=== PATIENT | male | born 1935 | race Caucasian/White ===

== ENCOUNTER → 2017-08-20 | Outpatient (CLI) | payer OTHER ==
[~2017-08-20] MED LIST: ASPIR-TRIN325 MG PO; BETAPACE80 MG PO; CAPTOPRIL100 MG PO; DILTIAZEM CD300 MG PO; KCL PO; POTASSIUM CHLO20 ME3 PO; SIMVASTATIN10 MG PO; SOTALOL HCL AF80 MG PO; SOTALOL80 MG PO; TRIAMTERENE AND1 TAB PO; VALSARTAN160 MG PO; [UNRECOGNIZED DRUG - OTHER] PO
== END | disposition home or self-care (01) ==
LOC: CANPRECLI → EDBD → RESCLI 02:39
DX: I48.2 Chronic atrial fibrillation (principal); I10 Essential (primary) hypertension; E78.5 Hyperlipidemia, unspecified; I25.10 Atherosclerotic heart disease of native coronary artery without angina pectoris

== ENCOUNTER 2017-09-18 13:45 | Inpatient (IN) | payer OTHER ==
[~2017-09-18] VITALS: Ht 182.9 cm; Wt 109.0 kg
[2017-09-18] VITALS (18 sets, daily range): BP systolic 107–156; BP diastolic 57–94
--- NOTE | ~2017-09-18 | CON ---
[place], [place] REPORT OF CONSULTATION NAME: GUERRERO ARCINIEGA UNIT #: [id number] ROOM: [facility] DOCTOR: MANAV MANZO MD BIRTHDATE: [birth year] DOS: 09/19/2017 HISTORY OF PRESENT ILLNESS: This is an 82-year-old -Thai male with a history of atrial fibrillation that goes back 15 years or so, I am not sure if this is chronic atrial fibrillation or paroxysmal. He has been on antiarrhythmic medication. He had a pacemaker implanted some 15 years ago and generators have been changed [address] Ferreira note from 2009 mentioned sick sinus syndrome as a diagnosis. He also has essential hypertension, hyperlipidemia, and chronic kidney disease. 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 He had the bilateral knee replacement and does have coronary artery disease with [address] Fererira. He does not use alcoholic beverages and does not smoke. He had gone to his physician for followup visit and was found to have a heart rate of 152 and was sent to the Emergency Department and was admitted. He had little bit of palpitations, but he had no dizziness, weakness, shortness of breath, lightheadedness, did not pass out. There was no sweating, nausea or vomiting. He had not had any exertional shortness of breath more than usual. No swelling of the lower extremities. He was started on a Cardizem drip in the Emergency Department and heart rate had slowed down nicely. HOME MEDICATIONS: Include brimonidine, clopidogrel, diltiazem XT 1300 daily, furosemide 40 daily, eye drops, potassium chloride 20 mEq daily, Xarelto 10 mg at bedtime (he had hematuria with higher dose), simvastatin 10 at bedtime, sotalol 80 mg daily, Timolol eyedrops as well, triamterene/hydrochlorothiazide and valsartan 160 daily. PHYSICAL EXAMINATION: GENERAL: The patient is very pleasant, alert, oriented. He is comfortable. He is not tachypneic. Temperature is normal. There is no thyromegaly or finger clubbing. VITAL SIGNS: Pulse is 60 and regular, blood pressure 160/70. NECK: Normal JVP. AJR is negative. There is no carotid bruit. HEART: There is no cardiomegaly. No murmurs are present. Pedal pulses are appreciated. EXTREMITIES: There is no edema at all in the lower extremities. RESPIRATORY: Breath sounds are fairly decent. He has a few crackles in the left lower zone. ABDOMEN: Supple, nontender. DIAGNOSTIC STUDIES: The first ECG demonstrated a regular heart rate at 151 beats per minute and no ST-T wave changes. This either is supraventricular complex or it is atrial flutter with 2:1 AV conduction. Once heart rate was slowed down, he began to pace in the ventricle with no atrial ectopy, probably atrial fibrillation with ventricular paced. At this time, the heart rate is in the 70s and monitor shows occasional pacing beat. Magnesium was 2.3. Potassium was normal. Chest x-ray was reviewed and did not [place], [place] REPORT OF CONSULTATION NAME: GUERRERO ARCINIEGA UNIT #: [id number] ROOM: [facility] DOCTOR: MANAV MANZO MD BIRTHDATE: [birth year] show any obvious pulmonary edema. BUN is 26, creatinine 1.62. IMPRESSION: This patient has atrial fibrillation, whether this is persistent or new is not clear. The patient does not have any obvious symptoms such as palpitations. Magnesium and potassium are both fine. Currently, heart rate has slowed down nicely with the IV diltiazem. The paced rhythm ECG showed prolonged QT interval at 538 milliseconds that is because of his QRS is also about 130 milliseconds on pacing, so this is not true prolonged QT interval. RECOMMENDATIONS: Beta yanni should be added to diltiazem p.o. and IV Cardizem can be discontinued. I would still be in favor of sotalol 80 mg b.i.d. and QT interval should be monitored when the patient is not pacing. An echocardiogram has been done, which Dr. Ferreira will read. I thank you on behalf of Dr. Ferreira for this consult. MANAV MANZO MD CM:CONSTR:REPORT OF CONSULTATION 1101 09/19/17 1216 interface SUZANNE FERREIRA MD
[2017-09-18 14:46] LABS: BASO % 0.5 % (0.0-1.0); EOS # 0.3 10*3/uL (0.0-0.4); EOS % 4.3 % (1.0-4.0); HEMATOCRIT 42.1 % (42.0-52.0); LYMPH # 1.5 10*3/uL (1.3-4.4); MEAN CELL VOLUME 87.7 fl (80.0-94.0); MEAN CORPUSCULAR HGB 29.2 pg (27.0-31.0); MEAN CORPUSCULAR HGB CONC 33.3 g/dl (33.0-37.0); MEAN PLATELET VOLUME 10.5 fl (9.6-12.3); MONO # 0.6 10*3/uL (0.1-1.0); MONO % 9.1 % (3.0-9.0); NEUT # 4.2 10*3/uL (2.3-7.9); NEUT % 63.8 % (47.0-73.0); PLATELET COUNT AUTOMATED 204 10*3/uL (130-400); RED CELL DISTRI WIDTH 14.4 % (0-14.5); WHITE BLOOD COUNT 6.6 10*3/uL (4.8-10.8)
[2017-09-18 15:06] LABS: ALBUMIN 3.5 gm/dl (3.1-4.5); CREATININE 1.74 mg/dL (0.70-1.30); TOTAL PROTEIN 7.1 gm/dL (6.4-8.2)
[2017-09-18] MEDS ORDERED: CLOPIDOGREL75 MG PO (17:23)
[2017-09-18] MEDS ORDERED: XARELTO10 MG PO (17:24)
[2017-09-18] MEDS ORDERED: CARTIA XT300 MG PO (17:28)
[2017-09-18] MEDS ORDERED: LASIX40 MG PO (17:29)
[2017-09-18] MEDS ORDERED: LATANOPROST2.5 ML OD (17:34)
[2017-09-18] MEDS ORDERED: BRIMONIDINE TART5 ML OD (17:35)
[2017-09-18] MEDS ORDERED: TIMOLOL MALEATE10 M1 OD (17:35)
[2017-09-18] MEDS ORDERED: DORZOLAMIDE HYD10 M1 OD (17:43)
[2017-09-18] MEDS ORDERED: DIOVAN160 M2 PO (17:44)
[2017-09-18] MEDS ORDERED: SYSTANE ULTRA 010 M1 OS (17:50)
[2017-09-19] VITALS: BP 129/78
[2017-09-19 04:00] VITALS: BP 128/75
[2017-09-19 06:13] LABS: BASO % 0.5 % (0.0-1.0); EOS # 0.4 10*3/uL (0.0-0.4); EOS % 5.7 % (1.0-4.0); HEMATOCRIT 41.3 % (42.0-52.0); HEMOGLOBIN 13.5 g/dl (14.0-18.0); LYMPH # 1.4 10*3/uL (1.3-4.4); LYMPH % 21.5 % (27.0-41.0); MEAN CELL VOLUME 87.7 fl (80.0-94.0); MEAN CORPUSCULAR HGB 28.7 pg (27.0-31.0); MEAN CORPUSCULAR HGB CONC 32.7 g/dl (33.0-37.0); MEAN PLATELET VOLUME 10.7 fl (9.6-12.3); MONO # 0.7 10*3/uL (0.1-1.0); PLATELET COUNT AUTOMATED 183 10*3/uL (130-400); RED BLOOD COUNT 4.71 10*6/uL (4.50-5.90); RED CELL DISTRI WIDTH 14.5 % (0-14.5); WHITE BLOOD COUNT 6.5 10*3/uL (4.8-10.8)
[2017-09-19 06:25] LABS: CREATININE 1.62 mg/dL (0.70-1.30); PHOSPHOROUS 3.1 mg/dL (2.5-4.9); POTASSIUM 3.7 mmol/L (3.5-5.1)
[2017-09-19 06:32] LABS: ACT PARTIAL THROMBO TIME 28.8 SECONDS (20.8-31.5); INTERNATIONAL NORM RATIO 1.1 (2.0-3.5)
[2017-09-19 06:33] LABS: THYROID STIM HORMONE (HS) 4.12 uIU/ml (0.358-4.75)
[2017-09-19 07:24] LABS: VITAMIN D, 25-HYDROXY 35.7 ng/mL (30-100)
[2017-09-19 08:00] VITALS: BP 116/70
[2017-09-19 12:00] VITALS: BP 117/74
[2017-09-19 16:00] VITALS: BP 137/62
[2017-09-19 20:00] VITALS: BP 155/80
[2017-09-20] VITALS: BP 138/86
[2017-09-20 07:28] VITALS: BP 110/70; BP 130/70
[2017-09-20 07:36] LABS: CREATININE 1.71 mg/dL (0.70-1.30); POTASSIUM 3.5 mmol/L (3.5-5.1)
[2017-09-20] MEDS ORDERED: METOPROLOL TART50 M1 PO (11:05)
== END 2017-09-20 12:27 | disposition home or self-care (01) | DRG 280 ==
LOC: EDSTATUS 13:45 → ED 13:46 → RESCLI 13:49 → EDHOLD 16:29 → ICCU 16:29 → 4E 16:29 → ICCU 16:53 → 4E 09-19 16:34
PROVIDERS: Emergency Medicine; Internal Medicine; Student in an Organized Health Care Education/Training Program
DX: I21.A1 Myocardial infarction type 2 (principal); N17.0 Acute kidney failure with tubular necrosis; R65.11 Systemic inflammatory response syndrome (SIRS) of non-infectious origin with acute organ dysfunction; D68.59 Other primary thrombophilia; I49.5 Sick sinus syndrome; E44.1 Mild protein-calorie malnutrition; I48.2 Chronic atrial fibrillation; D72.810 Lymphocytopenia; R73.9 Hyperglycemia, unspecified; I10 Essential (primary) hypertension; E78.5 Hyperlipidemia, unspecified; D64.9 Anemia, unspecified; Z96.653 Presence of artificial knee joint, bilateral; I25.10 Atherosclerotic heart disease of native coronary artery without angina pectoris; Z95.0 Presence of cardiac pacemaker; Z79.899 Other long term (current) drug therapy; Z79.01 Long term (current) use of anticoagulants; Z88.6 Allergy status to analgesic agent; Z88.8 Allergy status to other drugs, medicaments and biological substances; Z79.82 Long term (current) use of aspirin; Z86.73 Personal history of transient ischemic attack (TIA), and cerebral infarction without residual deficits; Z87.891 Personal history of nicotine dependence; Z82.49 Family history of ischemic heart disease and other diseases of the circulatory system; Z80.6 Family history of leukemia; Z83.3 Family history of diabetes mellitus; Z95.5 Presence of coronary angioplasty implant and graft; Z68.32 Body mass index [BMI] 32.0-32.9, adult

== ENCOUNTER 2017-12-27 09:40 | Inpatient (IN) | payer OTHER ==
[~2017-12-27] VITALS: Ht 182.8 cm; Wt 109.8 kg
[2017-12-27] VITALS (7 sets, daily range): BP systolic 141–178; BP diastolic 86–122
--- NOTE | ~2017-12-27 | CON ---
[place], [place] REPORT OF CONSULTATION [id number] UN[facility] #: [id number] ROOM: 515 DOCTOR: MANAV MANZO MD BIRTHDATE: [birth year] DOS: 12/27/2017 HISTORY OF PRESENT ILLNESS: This is an 82-year-old -[place] man with a history of chronic atrial fibrillation and also coronary artery disease. He had a coronary stent deployed some years ago. He also has essential hypertension and had a pacemaker implanted for sick sinus syndrome in the remote past. He has hyperlipidemia and chronic kidney disease and had a CVA in the remote past bilateral knee replacement. He does not smoke nor does he drink alcoholic beverages. He was admitted to this hospital in September with atrial flutter with rapid ventricular rate. He then became short of breath this morning and at that time, had some chest heaviness which lasted for quite some time. Nitroglycerin did not help. He was given IV furosemide in the Emergency Department to treat his breathing and chest heaviness and he is up as well. He did not have any orthopnea in the past, but increasing shortness of breath over the last few days. I gather he has not been taking furosemide which was prescribed for him. He has had swelling in the legs that appeared in the last many days and no dizziness or loss of consciousness. HOME MEDICATIONS: Include latanoprost eye drops, clopidogrel 75 daily, diltiazem 300 mg daily, furosemide 40 mg daily which he had not been taking, meclizine, Xarelto 10 mg daily, simvastatin 10 daily, sotalol 80 mg b.i.d. and triamterene and hydrochlorothiazide and valsartan 160 daily. PHYSICAL EXAMINATION: GENERAL: This revealed the patient is a very large gravid big bones. He is alert, oriented. He is not tachypneic, but has oxygen on. Temperature is normal. VITAL SIGNS: Pulse is irregular at 88 beats per minute, blood pressure 168/109. NECK: JVP is normal. AJR is negative. No bruit in the neck. CARDIAC: Auscultation did not reveal any murmurs. He has 2+ edema in the lower extremities. RESPIRATORY: Percussion note is normal. Auscultation reveals mild reduced breath sounds with some crackles in the lower zones. DIAGNOSTIC STUDIES: Chest x-ray demonstrated mild pulmonary edema and an ECG showed atrial fibrillation with ventricular rate of 127 beats per minute with minimal ST segment depression in many chest leads. LABORATORY DATA: BUN , creatinine 1.39, potassium 3.7. Troponin I level is normal. Hemoglobin 12.3 g/dL. IMPRESSION: 1. The patient has acute on chronic systolic heart failure and rapid ventricular rate is probably responsible to this to some extent along with noncompliance with the furosemide. This lorenzo has diuresed very well with intravenous furosemide which should be continued. 2. Coronary artery disease. Chest heaviness is present, but nitroglycerin did [place], [place] REPORT OF CONSULTATION NAME: GUERRERO ARCINIEGA UNIT #: [id number] ROOM: [facility] DOCTOR: MANAV MANZO MD BIRTHDATE: [birth year] not relieve it and once he diuresed, he is feeling eased up, which suggests pulmonary congestion may be responsible for his symptom. 3. Chronic kidney disease. RECOMMENDATIONS: Beta-yanni needs to be added; therefore, carvedilol 6.25 mg b.i.d. is being added to slow down the heart rate and help with the blood pressure. This dose should be increased as necessary. I believe he has an appointment with Dr. Ferreira in the next week or two which he should keep. I do not recommend any stress test at this time. I thank you on behalf of Dr. Ferreira for this consult. MANAV MANZO MD CM:CONSTR:REPORT OF CONSULTATION 1800 12/27/17 2555 interface
--- NOTE | ~2017-12-27 | PR ---
[place], [place] PROGRESS NOTE NAME: GUERRERO ARCINIEGA UNIT #: [id number] ROOM: 515 DOCTOR: MANAV MANZO MD BIRTHDATE: [birth year] DOS: 12/28/2017 SUBJECTIVE: He has less shortness of breath. He urinated quite a lot following IV furosemide. He has had no chest pain or palpitation. Some cough without any expectoration. Appetite is reasonable. OBJECTIVE: GENERAL: This is a patient who is alert, oriented. He has oxygen on and is not tachypneic. VITAL SIGNS: Pulse is 64, blood pressure 150/78. NECK: JVP does not seem to be elevated. LUNGS: Clear. EXTREMITIES: Edema in the lower extremities is at least 2+, more so on the right side. LABORATORY DATA: Creatinine is 1.35, down from yesterday, BUN is 18, potassium is 3.1. IMPRESSION: The patient's acute on chronic systolic heart failure is improving, diureses has caused hypokalemia. RECOMMENDATIONS: 1. Supplement potassium for hypokalemia. 2. Current dose of IV furosemide should be continued for another couple of days. MNAAV MANZO MD CM:PNTRANS [id number] MANAV MANZO MD 12/28/17 1532 interface
[~2017-12-27 09:40] MED LIST changes: +BRIMONIDINE TART5 ML OD; +CARTIA XT300 MG PO; +CLOPIDOGREL75 MG PO; +DIOVAN160 M2 PO; +DORZOLAMIDE HYD10 M1 OD; +LASIX40 MG PO; +LATANOPROST2.5 ML OD; +METOPROLOL TART50 M1 PO; +SYSTANE ULTRA 010 M1 OS; +TIMOLOL MALEATE10 M1 OD; +XARELTO10 MG PO
[2017-12-27] MEDS ORDERED: XARELTO10 MG PO (09:44)
[2017-12-27] MEDS ORDERED: SOTALOL80 MG PO (09:45)
[2017-12-27] MEDS ORDERED: MECLIZINE HCL12.5 MG PO (09:48)
[2017-12-27] MEDS ORDERED: NITROSTAT0.4 MG SL (09:50)
[2017-12-27] MEDS ORDERED: CHOLEST CARE500 MG PO (09:52)
[2017-12-27 09:59] LABS: BASO % 0.6 % (0.0-1.0); EOS # 0.3 10*3/uL (0.0-0.4); EOS % 3.6 % (1.0-4.0); HEMATOCRIT 37.9 % (42.0-52.0); HEMOGLOBIN 12.3 g/dl (14.0-18.0); LYMPH # 0.6 10*3/uL (1.3-4.4); LYMPH % 8.7 % (27.0-41.0); MEAN CELL VOLUME 89.6 fl (80.0-94.0); MEAN CORPUSCULAR HGB 29.1 pg (27.0-31.0); MEAN CORPUSCULAR HGB CONC 32.5 g/dl (33.0-37.0); MEAN PLATELET VOLUME 10.4 fl (9.6-12.3); MONO # 0.5 10*3/uL (0.1-1.0); MONO % 7.7 % (3.0-9.0); NEUT # 5.5 10*3/uL (2.3-7.9); NEUT % 79.3 % (47.0-73.0); PLATELET COUNT AUTOMATED 198 10*3/uL (130-400); RED BLOOD COUNT 4.23 10*6/uL (4.50-5.90); RED CELL DISTRI WIDTH 15.4 % (0-14.5)
[2017-12-27 10:10] LABS: ACT PARTIAL THROMBO TIME 25.3 SECONDS (20.8-31.5)
[2017-12-27 10:17] LABS: ALKALINE PHOSPHATASE 72 U/L (45-117); BUN 16 mg/dl (7-24); CHLORIDE 106 mmol/L (98-107); POTASSIUM 3.7 mmol/L (3.5-5.1); SGOT/AST 12 IU/L (3-35); SGPT/ALT 12 U/L (12-78); SODIUM 141 mmol/L (136-145); TOTAL PROTEIN 6.4 gm/dL (6.4-8.2)
[2017-12-27 10:25] LABS: TROPONIN I < 0.015 ng/ml (<0.045)
[2017-12-27 10:26] LABS: CREATININE 1.39 mg/dL (0.70-1.30)
[2017-12-27] MEDS ORDERED: TRIAMTERENE-HC1 EACH PO (12:36)
[2017-12-27] MEDS ORDERED: DIOVAN160 M2 PO (12:37)
[2017-12-28] VITALS: BP 148/80
[2017-12-28 06:41] LABS: BASO % 0.3 % (0.0-1.0); EOS # 0.3 10*3/uL (0.0-0.4); EOS % 5.2 % (1.0-4.0); HEMATOCRIT 36.4 % (42.0-52.0); HEMOGLOBIN 11.8 g/dl (14.0-18.0); LYMPH # 1.1 10*3/uL (1.3-4.4); LYMPH % 18.6 % (27.0-41.0); MEAN CELL VOLUME 89.2 fl (80.0-94.0); MEAN CORPUSCULAR HGB 28.9 pg (27.0-31.0); MEAN CORPUSCULAR HGB CONC 32.4 g/dl (33.0-37.0); MEAN PLATELET VOLUME 10.9 fl (9.6-12.3); MONO # 0.7 10*3/uL (0.1-1.0); MONO % 11.4 % (3.0-9.0); NEUT # 3.7 10*3/uL (2.3-7.9); NEUT % 64.2 % (47.0-73.0); PLATELET COUNT AUTOMATED 187 10*3/uL (130-400); RED BLOOD COUNT 4.08 10*6/uL (4.50-5.90); RED CELL DISTRI WIDTH 15.3 % (0-14.5); WHITE BLOOD COUNT 5.8 10*3/uL (4.8-10.8)
[2017-12-28 07:09] LABS: BUN 18 mg/dl (7-24); CHLORIDE 102 mmol/L (98-107); CHOLESTEROL 119 mg/dL (<200); CREATININE 1.35 mg/dL (0.70-1.30); HDL CHOLESTEROL 39 mg/dl (40-60); LDL CHOLESTEROL 61 mg/dL (9-159); PHOSPHOROUS 3.6 mg/dL (2.5-4.9); POTASSIUM 3.1 mmol/L (3.5-5.1); SODIUM 141 mmol/L (136-145); TRIGLYCERIDES 94 mg/dl (<150); VLDL CHOLESTEROL 19 mg/dL (6-40)
[2017-12-28 08:00] VITALS: BP 150/78
[2017-12-28 12:00] VITALS: BP 134/79
[2017-12-28 16:00] VITALS: BP 120/68
[2017-12-28 20:00] VITALS: BP 170/92
[2017-12-29] VITALS: BP 127/72
[2017-12-29 08:00] VITALS: BP 140/95
[2017-12-29 08:23] LABS: CREATININE 1.51 mg/dL (0.70-1.30); POTASSIUM 3.1 mmol/L (3.5-5.1)
[2017-12-29 08:33] LABS: FREE T4 1.07 ng/dl (0.76-1.46)
[2017-12-29] MEDS ORDERED: CARVEDILOL6.25 MG PO (11:05)
[2017-12-29] MEDS ORDERED: NITROSTAT0.4 MG SL (11:28)
== END 2017-12-29 11:55 | disposition home health service (06) | DRG 291 ==
LOC: ED 09:40 → 5E 10:22 → EDHOLD 10:22 → 5E 10:36
PROVIDERS: Emergency Medicine; Student in an Organized Health Care Education/Training Program
PROC: 4B02XSZ Measurement of Cardiac Pacemaker, External Approach (ICD-10-PCS; principal; 2017-12-28)
DX: I13.0 Hypertensive heart and chronic kidney disease with heart failure and stage 1 through stage 4 chronic kidney disease, or unspecified chronic kidney disease (principal); I50.43 Acute on chronic combined systolic (congestive) and diastolic (congestive) heart failure; D68.59 Other primary thrombophilia; I49.5 Sick sinus syndrome; E44.1 Mild protein-calorie malnutrition; E83.41 Hypermagnesemia; N18.3 Chronic kidney disease, stage 3 (moderate); I48.2 Chronic atrial fibrillation; J44.9 Chronic obstructive pulmonary disease, unspecified; D64.9 Anemia, unspecified; Z96.653 Presence of artificial knee joint, bilateral; Z66 Do not resuscitate; Z51.5 Encounter for palliative care; E87.6 Hypokalemia; I25.10 Atherosclerotic heart disease of native coronary artery without angina pectoris; R73.9 Hyperglycemia, unspecified; E78.5 Hyperlipidemia, unspecified; Z68.32 Body mass index [BMI] 32.0-32.9, adult; Z79.01 Long term (current) use of anticoagulants; Z79.899 Other long term (current) drug therapy; Z86.73 Personal history of transient ischemic attack (TIA), and cerebral infarction without residual deficits; I25.2 Old myocardial infarction; Z95.0 Presence of cardiac pacemaker; Z95.818 Presence of other cardiac implants and grafts; Z87.891 Personal history of nicotine dependence; Z80.6 Family history of leukemia; Z82.49 Family history of ischemic heart disease and other diseases of the circulatory system; Z83.3 Family history of diabetes mellitus

== ENCOUNTER 2018-05-10 11:46 | Inpatient (IN) | payer OTHER ==
[2018-05-10] VITALS (8 sets, daily range): BP systolic 149–178; BP diastolic 62–115
[~2018-05-10] VITALS: Ht 182.9 cm; Wt 98.2 kg
--- NOTE | ~2018-05-10 | DS ---
[place], [place] DISCHARGE SUMMARY NAME: UGERRERO ARCINIEGA UNIT #: [id number] ROOM: 401 DOCTOR: LORY MCDONOUGH MD BIRTHDATE: [birth year] DOS: DIAGNOSES: 1. Acute systolic congestive heart failure. 2. Peripheral volume overload. 3. Coronary artery disease with history of stent placement. 4. Chronic atrial fibrillation. 5. History of pacemaker placement for sick sinus. 6. Bilateral knee replacement. 7. Mixed hyperlipidemia. 8. Primary osteoarthritis, bilateral knee joints. 9. Mild depression, single episode. 10. Hypokalemia. HOSPITAL COURSE: The patient is not known to me, 82 years old, comes in with complaints of difficulty breathing, increased leg edema. The patient was quite swollen and peripheral volume overload was noted bilaterally. The patient was placed on IV diuretics. Reviewed the echocardiogram that was done in 09/2017, showed that his ejection fraction was only 40-45%. Dr. Ferreira was consulted. The patient has not been seen by Dr. Ferreira this admission. Medication adjustments were made. Pressures are slightly on the high side, possibly from meds being readjusted. Chest x-ray continues to show COPD, does not show any evidence of CHF. Lactic acid was high, it has normalized. Potassium supplementation was given for hypokalemia. Today's labs are pending. The patient was quite depressed after his , feels that he is quite lonely and he is emotional, so it was added. The patient was started on a low dose of Lexapro. The patient is stable and improving. The plan is to discharge him to home today to be followed up as an outpatient by his PCP. Visiting nurses also have been consulted. [place], [place] DISCHARGE SUMMARY NAME: GUERRERO ARCINIEGA UNIT #: [id number] ROOM: 401 DOCTOR: LORY MCDONOUGH MD BIRTHDATE: [birth year] LORY MCDONOUGH MD CM:DISCHARG 0817 [id number] LORY MCDONOUGH MD 05/28/18 1026 interface
--- NOTE | ~2018-05-10 | PR ---
[place], [place] PROGRESS NOTE NAME: [facility]IEGA [id number] UNIT #: [id number] ROOM: 401 DOCTOR: LORY MCDONOUGH MD BIRTHDATE: [birth year] DOS: SUBJECTIVE: The patient is doing fine without any complaints today. OBJECTIVE: VITAL SIGNS: Blood pressure at midnight 118/88, pulse of 80, respirations 20, temperature 97.9. LUNGS: Diminished breath sounds, clear. HEART: Irregular. ABDOMEN: Obese, soft. EXTREMITIES: Without any edema. LABORATORY DATA: Lab this morning shows a potassium which is low. ASSESSMENT AND PLAN: 1. Hypokalemia. Supplementation is ordered. 2. Acute systolic congestive heart failure. The patient will have a repeat echocardiogram on Sunday, unfortunately the long weekend and we are unable to do an echocardiogram. 3. Primary osteoarthritis, localized. Medications were given. 4. Because of left ventricular dysfunction, changes in antihypertensives will need to be made. LORY MCDONOUGH MD CM:PNTRANS [id number] [id number] LORY MCDONOUGH MD 05/12/18 2146 interface
--- NOTE | ~2018-05-10 | PR ---
[place], [place] PROGRESS NOTE NAME: [facility] ARCINIEGA [id number] UNIT #: [id number] ROOM: 401 DOCTOR: LORY MCDONOUGH MD BIRTHDATE: [birth year] DOS: SUBJECTIVE: The patient is doing fine without any complaints this morning, had a good night. OBJECTIVE: VITAL SIGNS: Blood pressure is 155/88, pulse of 88, respirations 20, temperature 98.5. LUNGS: Clear. HEART: Regular. ABDOMEN: Obese, soft. EXTREMITIES: Without any edema. ASSESSMENT AND PLAN: 1. The patient admitted with shortness of breath with systolic congestive heart failure, improved. 2. Left ventricular dysfunction, ejection fraction about 40%. The patient's medications have been changed, added beta yanni and RACHEL inhibitors. 3. History of cigarette smoking many years ago. Chest x-ray showing chronic obstructive pulmonary disease. 4. Hypokalemia. Supplementation was given. Repeat labs will be ordered today. LORY MCDONOUGH MD CM:PNTRANS 0811 [id number] LORY MCDONOUGH MD 05/13/18 1145 interface
--- NOTE | ~2018-05-10 | EKG ---
[place], [place] ELECTROCARDIOGRAM REPORT NAME: GUERRERO ARCINIEGA UNIT #: [id number] ROOM: 401 DOCTOR: FARRUKH DRAFT REPORT BIRTHDATE: [birth year] [facility] Test Date: 2018-05-10 Test Time: 11:52:02 Pat Name: GUERRERO ARCINIEGA Department: Room: 401 Gender: M Adult Secondary Education Instructor: : 1935 Requested By: GUCCI PERLA Order Number: [id number] Reading MD: Garth Butler MD Measurements Intervals [place] Rate: 119 P: UT: QRS: 18 QRSD: 86 T: 13 QT: 352 QTc: 496 Interpretive Statements Atrial fibrillation,RVR Probable anteroseptal infarct, old Borderline repolarization abnormality Electronically Signed On 05-15-2018 19:51:52 PDT by Garth Butler MD CM:EKGRPT:ELECTROCARDIOGRAM REPORT 1152 50 GUCCI SALOMON DRAFT REPORT GUCCI PERLA DO
--- NOTE | ~2018-05-10 | WRIGHTHP ---
[place], [place] PATIENT HISTORY AND PHYSICAL EXAM NAME: GUERRERO ARCINIEGA [facility] #: [id number] UNIT #: [id number] ROOM: 401 DOCTOR: LORY MCDONOUGH MD BIRTHDATE: [birth year] DOS: 05/10/2018 HISTORY OF PRESENT ILLNESS: The patient is an 82 years old, not known to me. The patient presents with complaints of increasing shortness of breath for a few days' duration with increasing leg edema; usually sees a physician in [facility], but that person has retired and he has not seen anybody for a few weeks. He was last hospitalized in 12/2017 with complaints of chest pain. The patient denies having any chest pains, palpitations or shortness of breath. States that he is lonely, had a fall a few months ago down the cellar steps and since then, his left leg has been swollen. Both of his legs are now swollen and he has been short of breath, so he decided to come into the Emergency Room. PAST MEDICAL HISTORY: Significant for: 1. Coronary artery disease with history of stent placement about 2 years ago. 2. Chronic atrial fibrillation. 3. History of pacemaker placement for sick sinus. 4. Mixed hyperlipidemia. 5. Bilateral knee replacement. MEDICATIONS: That he is currently on are Cardizem 300, Xarelto 10 mg daily, Plavix 75 daily, prednisone eye drops to the eye, furosemide 40 daily, meclizine 12.5 q.6 hours p.r.n., Klor-Con 20 daily, simvastatin 10 daily, sotalol 80 b.i.d., tramadol 50 b.i.d. SOCIAL HISTORY: Nonsmoker, does not use any alcohol. Lives at home alone. His a little more than a year ago. He has 3 grown son. OBJECTIVE: VITAL SIGNS: Blood pressure is 152/76, pulse of 110, irregular, respirations 18, temperature 98.3. LUNGS: Diminished breath sounds. No wheezes, rales or rhonchi heard this morning. HEART: Irregular. ABDOMEN: Obese, soft, nontender. EXTREMITIES: Bilateral pitting edema about 2+. Chest x-ray did not show any pneumonia or any effusion or CHF. LABORATORY DATA: Comprehensive glucose 176, BUN 17, creatinine 1.45, sodium 141, potassium 3.5, chloride 104, bicarbonate 30. C-reactive protein 0.57. WBC count is 5.3, hemoglobin 13.2, hematocrit 41.0, platelets 196. Chest x-ray, no acute lung disease. Lactic acid 1.4. ASSESSMENT AND PLAN: 1. The patient presents with acute systolic congestive heart failure. Last echocardiogram that we have in the hospital is 09/2017, which shows an ejection fraction of 40-45% with a concentric left ventricular hypertrophy. The patient needs to be placed on beta blockers and RACHEL inhibitors and a low dose of Aldactone, which we have done. I will discontinue the Cardizem right now, readjust beta blockers. [place], [place] PATIENT HISTORY AND PHYSICAL EXAM NAME: GUERRERO ARCINIEGA UNIT #: [id number] ROOM: [facility] DOCTOR: LORY MCDONOUGH MD BIRTHDATE: [birth year] 2. Coronary artery disease. Continue Plavix. 3. Chronic atrial fibrillation, on long-term use of anticoagulants. The patient is taking a lower dose of Xarelto because of history of a bleed. 4. Primary osteoarthritis, bilateral knee joints. The patient has given Voltaren cream for local application. 5. Adult failure to thrive. PT/OT will be consulted. 6. Mild major depression, single episode at low dose Lexapro. LORY MCDONOUGH MD CM:HISPHYS:PATIENT HISTORY AND PHYSICAL EXAMINATION 08 1233 LORY MCDONOUGH MD 05/11/18 1231 interface
[~2018-05-10 11:46] MED LIST changes: +CARVEDILOL6.25 MG PO; +CHOLEST CARE500 MG PO; +MECLIZINE HCL12.5 MG PO; +NITROSTAT0.4 MG SL; +TRIAMTERENE-HC1 EACH PO
[2018-05-10 12:10] LABS: BASO % 0.7 % (0.0-1.0); EOS # 0.2 10*3/uL (0.0-0.4); EOS % 3.9 % (1.0-4.0); HEMOGLOBIN 13.2 g/dl (14.0-18.0); LYMPH # 0.8 10*3/uL (1.3-4.4); LYMPH % 15.5 % (27.0-41.0); MEAN CELL VOLUME 85.1 fl (80.0-94.0); MEAN CORPUSCULAR HGB 27.4 pg (27.0-31.0); MEAN CORPUSCULAR HGB CONC 32.2 g/dl (33.0-37.0); MEAN PLATELET VOLUME 11.2 fl (9.6-12.3); MONO # 0.5 10*3/uL (0.1-1.0); MONO % 9.9 % (3.0-9.0); NEUT # 3.7 10*3/uL (2.3-7.9); NEUT % 69.6 % (47.0-73.0); PLATELET COUNT AUTOMATED 196 10*3/uL (130-400); RED BLOOD COUNT 4.82 10*6/uL (4.50-5.90); WHITE BLOOD COUNT 5.3 10*3/uL (4.8-10.8)
[2018-05-10 12:18] LABS: ACT PARTIAL THROMBO TIME 27.2 SECONDS (20.8-31.5); INTERNATIONAL NORM RATIO 1.2 (2.0-3.5)
[2018-05-10 12:27] LABS: ALBUMIN 3.4 gm/dl (3.1-4.5); ALKALINE PHOSPHATASE 75 U/L (45-117); BUN 17 mg/dl (7-24); CHLORIDE 104 mmol/L (98-107); CREATININE 1.45 mg/dL (0.70-1.30); LIPASE 74 U/L (73-393); POTASSIUM 3.5 mmol/L (3.5-5.1); SGOT/AST 11 IU/L (3-35); SGPT/ALT 11 U/L (12-78); SODIUM 141 mmol/L (136-145); TOTAL PROTEIN 6.9 gm/dL (6.4-8.2)
[2018-05-10 12:28] LABS: TROPONIN I < 0.015 ng/ml (<0.045)
[2018-05-10] MEDS ORDERED: KLOR-CON M2020 ME1 PO (15:12)
[2018-05-10] MEDS ORDERED: PREDNISOLONE ACE5 M5 OP (15:14)
[2018-05-10] MEDS ORDERED: TRAMADOL HCL50 MG PO (16:49)
[2018-05-10] MEDS ORDERED: PLAVIX75 M1 PO (19:34)
[2018-05-11 00:32] VITALS: BP 152/76
[2018-05-11 06:55] LABS: BASO % 0.7 % (0.0-1.0); EOS # 0.2 10*3/uL (0.0-0.4); EOS % 3.7 % (1.0-4.0); HEMATOCRIT 37.7 % (42.0-52.0); HEMOGLOBIN 11.8 g/dl (14.0-18.0); LYMPH # 1.2 10*3/uL (1.3-4.4); LYMPH % 20.2 % (27.0-41.0); MEAN CELL VOLUME 86.7 fl (80.0-94.0); MEAN CORPUSCULAR HGB 27.1 pg (27.0-31.0); MEAN CORPUSCULAR HGB CONC 31.3 g/dl (33.0-37.0); MEAN PLATELET VOLUME 11.7 fl (9.6-12.3); MONO # 0.9 10*3/uL (0.1-1.0); MONO % 14.8 % (3.0-9.0); NEUT # 3.6 10*3/uL (2.3-7.9); NEUT % 60.4 % (47.0-73.0); PLATELET COUNT AUTOMATED 177 10*3/uL (130-400); RED BLOOD COUNT 4.35 10*6/uL (4.50-5.90); RED CELL DISTRI WIDTH 17.1 % (0-14.5); WHITE BLOOD COUNT 5.9 10*3/uL (4.8-10.8)
[2018-05-11 06:56] LABS: BUN 16 mg/dl (7-24); CHLORIDE 104 mmol/L (98-107); CREATININE 1.27 mg/dL (0.70-1.30); SODIUM 144 mmol/L (136-145)
[2018-05-11 12:00] VITALS: BP 134/90
[2018-05-11 16:00] VITALS: BP 141/94
[2018-05-11 20:00] VITALS: BP 145/86
[2018-05-12] VITALS: BP 118/88
[2018-05-12 08:00] VITALS: BP 172/100
[2018-05-12 12:00] VITALS: BP 119/76; BP 142/78
[2018-05-12 16:00] VITALS: BP 143/77
[2018-05-12 20:00] VITALS: BP 150/80
[2018-05-13] VITALS: BP 150/88
[2018-05-13 08:00] VITALS: BP 148/70; BP 155/89
[2018-05-13] MEDS ORDERED: CARVEDILOL6.25 MG PO (08:10)
[2018-05-13] MEDS ORDERED: PRINIVIL10 MG PO (08:10)
[2018-05-13] MEDS ORDERED: VOLTAREN100 GM T (08:11)
[2018-05-13] MEDS ORDERED: LEXAPRO10 MG PO (08:11)
[2018-05-13 08:38] LABS: BUN 20 mg/dl (7-24); CHLORIDE 101 mmol/L (98-107); CREATININE 1.26 mg/dL (0.70-1.30); POTASSIUM 3.8 mmol/L (3.5-5.1); SODIUM 141 mmol/L (136-145)
== END 2018-05-13 11:10 | disposition home or self-care (01) | DRG 640 ==
LOC: ED 11:46 → EDHOLD 14:24 → 4E 15:14
PROVIDERS: Emergency Medicine; Internal Medicine
DX: E87.6 Hypokalemia (principal); I50.31 Acute diastolic (congestive) heart failure; J44.9 Chronic obstructive pulmonary disease, unspecified; I48.2 Chronic atrial fibrillation; F32.9 Major depressive disorder, single episode, unspecified; I25.10 Atherosclerotic heart disease of native coronary artery without angina pectoris; Z66 Do not resuscitate; Z51.5 Encounter for palliative care; R62.7 Adult failure to thrive; Z96.653 Presence of artificial knee joint, bilateral; E78.2 Mixed hyperlipidemia; Z95.5 Presence of coronary angioplasty implant and graft; Z95.0 Presence of cardiac pacemaker; Z79.01 Long term (current) use of anticoagulants; Z79.02 Long term (current) use of antithrombotics/antiplatelets; Z79.899 Other long term (current) drug therapy; Z87.891 Personal history of nicotine dependence

== ENCOUNTER 2018-06-20 12:12 | Emergency (ER) | payer OTHER ==
[~2018-06-20] VITALS: Ht 182.8 cm; Wt 98.9 kg
--- NOTE | ~2018-06-20 | EKG ---
[place], [place] ELECTROCARDIOGRAM REPORT NAME: GUERRERO ARCINIEGA UNIT #: [id number] ROOM: DOCTOR: EPIPHANY DRAFT REPORT BIRTHDATE: [birth year] [facility] Test Date: 2018-06-20 Test Time: 13:08:26 Pat Name: GUERRERO ARCINIEGA Department: Room: Gender: Accounting Manager: Aniyah Laboy : 1935 Requested By: RICHELLE BRAVO Order Number: [id number] Reading MD: David Ferreira MD Measurements Intervals [place] Rate: 105 P: 0 UT: 536 QRS: -70 QRSD: 153 T: 100 QT: 459 QTc: 607 Interpretive Statements Ventricular-paced rhythm No further analysis attempted due to paced rhythm Compared to ECG 05/10/2018 11:52:02 Atrial fibrillation no longer present Myocardial infarct finding no longer present Electronically Signed On 06-24-2018 8:39:01 PDT by David Ferreira MD CM:EKGRPT:ELECTROCARDIOGRAM REPORT 1308 0839 RICHELLE CHADWICK DRAFT REPORT RICHELLE BRAVO M.D.
[~2018-06-20 12:12] MED LIST changes: +KLOR-CON M2020 ME1 PO; +LEXAPRO10 MG PO; +PLAVIX75 M1 PO; +PREDNISOLONE ACE5 M5 OP; +PRINIVIL10 MG PO; +TRAMADOL HCL50 MG PO; +VOLTAREN100 GM T
[2018-06-20 13:02] LABS: BASO % 0.7 % (0.0-1.0); EOS # 0.1 10*3/uL (0.0-0.4); EOS % 2.2 % (1.0-4.0); HEMATOCRIT 36.7 % (42.0-52.0); HEMOGLOBIN 11.8 g/dl (14.0-18.0); LYMPH # 0.7 10*3/uL (1.3-4.4); LYMPH % 13.6 % (27.0-41.0); MEAN CELL VOLUME 86.2 fl (80.0-94.0); MEAN CORPUSCULAR HGB 27.7 pg (27.0-31.0); MEAN CORPUSCULAR HGB CONC 32.2 g/dl (33.0-37.0); MEAN PLATELET VOLUME 11.3 fl (9.6-12.3); MONO # 0.6 10*3/uL (0.1-1.0); MONO % 10.3 % (3.0-9.0); PLATELET COUNT AUTOMATED 160 10*3/uL (130-400); RED BLOOD COUNT 4.26 10*6/uL (4.50-5.90); RED CELL DISTRI WIDTH 16.8 % (0-14.5); WHITE BLOOD COUNT 5.4 10*3/uL (4.8-10.8)
[2018-06-20 13:28] LABS: ALBUMIN 3.2 gm/dl (3.1-4.5); CREATININE 1.8 mg/dL (0.70-1.30); POTASSIUM 3.5 mmol/L (3.5-5.1); TOTAL PROTEIN 6.3 gm/dL (6.4-8.2)
[2018-06-20 13:30] LABS: TROPONIN I 0.04 ng/ml (<0.045)
[2018-06-20] MEDS ORDERED: ZESTRIL10 MG PO (14:06)
[2018-06-20] MEDS ORDERED: METOPROLOL TART50 M1 PO (14:08)
[2018-06-20 15:18] VITALS: BP 130/91
== END 2018-06-20 16:13 | disposition home or self-care (01) ==
LOC: ED 12:12
PROVIDERS: Emergency Medicine
DX: S01.01XA Laceration without foreign body of scalp, initial encounter (principal); S00.93XA Contusion of unspecified part of head, initial encounter; R60.0 Localized edema; I13.0 Hypertensive heart and chronic kidney disease with heart failure and stage 1 through stage 4 chronic kidney disease, or unspecified chronic kidney disease; N18.3 Chronic kidney disease, stage 3 (moderate); I50.9 Heart failure, unspecified; I25.10 Atherosclerotic heart disease of native coronary artery without angina pectoris; J44.9 Chronic obstructive pulmonary disease, unspecified; E78.5 Hyperlipidemia, unspecified; I25.2 Old myocardial infarction; Z87.891 Personal history of nicotine dependence; Z79.899 Other long term (current) drug therapy; W07.XXXA Fall from chair, initial encounter; Y93.84 Activity, sleeping; Y92.89 Other specified places as the place of occurrence of the external cause; Y99.8 Other external cause status

== ENCOUNTER 2018-08-06 12:08 | Emergency (ER) | payer OTHER ==
[~2018-08-06] VITALS: Wt 81.6 kg
[~2018-08-06 12:08] MED LIST changes: +ZESTRIL10 MG PO
[2018-08-06 12:15] VITALS: BP 114/84
[2018-08-06 12:48] LABS: BILIRUBIN NEGATIVE (NEGATIVE); BLOOD 3+ (NEGATIVE); CLARITY TURBID (CLEAR); COLOR YELLOW (YELLOW); GLUCOSE NEGATIVE (NEGATIVE); KETONE NEGATIVE (NEGATIVE); LEUKO ESTERASE 3+ (NEGATIVE); NITRITE POSITIVE (NEGATIVE); PH 8.5 (5.0-9.0); UROBILINOGEN 0.2 E.U./dl (0.2-1.0)
[2018-08-06 13:10] LABS: BACTERIA 4+; RBC TNTC rbc/hpf (0-2); WBC TNTC wbc/hpf (0-5)
[2018-08-06] MEDS ORDERED: SEPTDS PO (13:59)
== END 2018-08-06 13:20 | disposition home or self-care (01) ==
LOC: ED 12:08
PROVIDERS: Emergency Medicine
DX: N39.0 Urinary tract infection, site not specified (principal); I48.91 Unspecified atrial fibrillation; I25.10 Atherosclerotic heart disease of native coronary artery without angina pectoris; J44.9 Chronic obstructive pulmonary disease, unspecified; E78.5 Hyperlipidemia, unspecified; I25.2 Old myocardial infarction; I13.0 Hypertensive heart and chronic kidney disease with heart failure and stage 1 through stage 4 chronic kidney disease, or unspecified chronic kidney disease; N18.3 Chronic kidney disease, stage 3 (moderate); I50.9 Heart failure, unspecified; Z87.891 Personal history of nicotine dependence; Z95.0 Presence of cardiac pacemaker; Z86.73 Personal history of transient ischemic attack (TIA), and cerebral infarction without residual deficits; Z79.899 Other long term (current) drug therapy

== ENCOUNTER → 2018-08-26 | Outpatient (CLI) | payer OTHER ==
[~2018-08-26] MED LIST changes: +ALDACTONE25 MG PO; +BUMETANIDE2 MG PO; +CIPRO500 MG PO; +DIGITEK125 MCG PO; +DILTIAZEM 24HR300 MG PO; +FINASTERIDE5 M1 PO; +METOPROLOL TAR100 M1 PO; +SEPTDS PO; +TAMSULOSIN HCL0.4 MG PO
== END | disposition home or self-care (01) ==
LOC: CT 08-15 11:00
DX: J90 Pleural effusion, not elsewhere classified (principal); K80.20 Calculus of gallbladder without cholecystitis without obstruction; K57.30 Diverticulosis of large intestine without perforation or abscess without bleeding; R18.8 Other ascites; N20.0 Calculus of kidney

== ENCOUNTER 2018-08-29 10:19 | Inpatient (IN) | payer OTHER ==
[~2018-08-29] VITALS: Ht 182.8 cm; Wt 98.1 kg
--- NOTE | ~2018-08-29 | CON ---
[place], [place] REPORT OF CONSULTATION NAME: [facility]ERO ARCINIEGA [id number] UNIT #: [id number] ROOM: 529 DOCTOR: MANAV MANZO MD BIRTHDATE: [birth year] DOS: 08/29/2018 HISTORY OF PRESENT ILLNESS: I saw this patient on behalf of Dr. Ferreira in December of this year. He is an 82-year-old -Q[place] man with a history of chronic atrial fibrillation and also coronary artery disease. He had a pacemaker implanted for sick sinus syndrome in the remote past, also has essential hypertension, hyperlipidemia, chronic kidney disease, had a CVA in the remote past without much residual. He had bilateral knee replacement done in the remote past as well. He has been admitted with heart failure in the past ____. He has had ____ failure with lot of swelling in the legs and his legs have been dressed repeatedly for quite some time because of the edema and I believe some leakage. He came to the hospital because of increasing shortness of breath and also more swelling. No palpitation, dizziness. He did not have any chest pain. HOME MEDICATIONS: Include carvedilol, ciprofloxacin, clopidogrel, Cardizem 300 mg daily, Lexapro 10 mg daily, finasteride 5 mg daily, furosemide 40 mg p.o. daily, lisinopril 10 mg daily, potassium chloride 20 mEq daily, Xarelto 10 mg daily and simvastatin 10 mg daily, sotalol 80 mg b.i.d. and Flomax 0.4 mg daily. PHYSICAL EXAMINATION: GENERAL: Exam reveals a patient who is very tall. He is alert, oriented. He has some ecchymosis under the eyes, which has had resulted from a fall a couple of weeks ago due to imbalance. He is not anemic, not jaundiced. He is not tachypneic. VITAL SIGNS: Pulse is irregular at 88 beats per minute, blood pressure 110/55. JVP is greater than 15 cm with positive AJR. CARDIAC: Auscultation with no obvious murmurs. EXTREMITIES: He has mild edema of his torso, 2+ edema of the thighs and also significant edema of the feet, probably 3+. His lower legs have dressing on them. LUNGS: Auscultation of the lung revealed moderately reduced breath sounds with lot of crackles bilaterally. ABDOMEN: Liver is not enlarged. There are no obvious signs of ascites. LABORATORY DATA: Hemoglobin is 12 grams. BUN 18, creatinine 1.33, magnesium 2.3. the proBNP is 3920, serum albumin 2.9 mg/dL. Chest x-ray demonstrated mild pulmonary congestion with may be little effusion. IMPRESSION: 1. This patient has acute on chronic systolic heart failure. My estimate is that he probably has about 20-25 pounds of water that needs to be unloaded. I think once that is done edema in the lower extremities is likely to resolve and he will not have his ulcers that he has on his legs. 2. Edema in the lower extremities is also caused by high dose of diltiazem. 3. Atrial fibrillation. I think this is chronic and sotalol probably does not have any role to play. RECOMMENDATIONS: [place], [place] REPORT OF CONSULTATION NAME: GUERRERO ARCINIEGA UNIT #: [id number] ROOM: 529 DOCTOR: MANAV MANZO MD BIRTHDATE: [birth year] 1. Bumex 2 mg b.i.d. for many days while monitoring renal function, potassium and magnesium. 2. Chronic atrial fibrillation. Beta yanni is being discontinued. Rate is reasonably controlled. 3. Edema in the lower extremities, partly due to high dose of diltiazem, which is being discontinued dose. I will also discontinue carvedilol. I think the metoprolol is likely to control his heart rate better, so he will be started on 100 mg b.i.d. of metoprolol and as I said Cardizem and diltiazem are being discontinued. I thank you on behalf of Dr. Ferreira for this consult. MANAV MANZO MD CM:CONSTR:REPORT OF CONSULTATION 27 08/30/181731 interface SUZANNE FERREIRA MD
--- NOTE | ~2018-08-29 | WRIGHTHP ---
[place], [place] PATIENT HISTORY AND PHYSICAL EXAM NAME: GUERRERO ARCINIEGA [facility] #: [id number] UNIT #: [id number] ROOM: 529 DOCTOR: LORY MCDONOUGH MD BIRTHDATE: [birth year] DOS: 08/29/2018 HISTORY OF PRESENT ILLNESS: The patient is 83 years old, has had increasing shortness of breath and leg edema, was getting Unna boot wrappings and continues to be on a low dose Lasix at home. He had seen Dr. Carbone for chronic bladder problems and was ordered a CT of the abdomen and pelvis and it showed a moderate size right pleural effusion with pulmonary venous congestion and ascites and the patient was advised to be admitted. This patient does not have any complaints. Denies having any chest pains, palpitations, does not have any fever or chills, does not have any abdominal pain, nausea, emesis. His legs are being wrapped up weekly with Unna boot. PAST MEDICAL HISTORY: Significant for: 1. Benign hypertension. 2. Coronary artery disease. 3. History of systolic dysfunction with congestive heart failure. 4. History of pacemaker placement for sick sinus. 5. Primary osteoarthritis of knee joint, status post knee replacements. 6. Mixed hyperlipidemia. 7. Failure to thrive adult. MEDICATIONS: He is currently on are Cipro 500 b.i.d. through the urologist, Coreg 6.25 twice a day, Plavix 75 daily, diltiazem 300 daily, Lexapro 10 daily, finasteride 5 daily, Lasix 40 daily, lisinopril 10 daily, potassium 20 daily, Xarelto 10 daily, simvastatin 10 daily, sotalol 80 b.i.d., tamsulosin 0.4 daily. SOCIAL HISTORY: Nonsmoker, does not use any alcohol. Lives at home. PHYSICAL EXAMINATION: GENERAL: He is awake and alert and oriented. VITAL SIGNS: Blood pressure is 130/88, pulse of 100, respirations 18, temperature 97.8. LUNGS: Diminished breath sounds, poor air entry overall especially in the right lower lobe. HEART: Regular. ABDOMEN: Obese, soft. EXTREMITIES: Bilateral Unna boot placement. ASSESSMENT AND PLAN: 1. This is an 83-year-old presents with bilateral leg edema, pleural effusion, moderate size ascites and pulmonary venous congestion. The patient is being admitted, IV diuretics was ordered. In addition, he was also being seen by Dr. Almonte in consult for thoracentesis. I am hoping the ascites will resolve with the diuretics and would not need a paracentesis. 2. Chronic leg edema. Bumex was added instead of the Lasix that he is on. Kidney functions are fairly stable, but Cardiology consultation was obtained. 3. Hypokalemia. Supplementation will be given. 4. Coronary artery disease with multiple anticoagulants, which are on hold, currently for his procedure will be restarting it as a procedure is over. [place], [place] PATIENT HISTORY AND PHYSICAL EXAM NAME: GUERRERO ARCINIEGA UNIT #: [id number] ROOM: 529 DOCTOR: LORY MCDONOUGH MD BIRTHDATE: [birth year] LORY MCDONOUGH MD CM:HISPHYS:PATIENT HISTORY AND PHYSICAL EXAMINATION 7 9 LORY MCDONOUGH MD 08/30/18 0859 interface
--- NOTE | ~2018-08-29 | PR ---
[place], [place] PROGRESS NOTE NAME: GUERRERO ARCINIEGA UNIT #: [id number] ROOM: 529 DOCTOR: MANAV MANZO MD BIRTHDATE: [birth year] DOS: 09/01/2018 SUBJECTIVE: He is walking around in the room with no short of breath, no PND or orthopnea. He tells me he diuresed fairly well. No palpitations. PHYSICAL EXAMINATION: GENERAL: The patient is very pleasant, alert, comfortable. He is not tachypneic. VITAL SIGNS: Pulse is 80, irregular. NECK: JVP is normal. LUNGS: Fairly clear with few crackles. EXTREMITIES: He has severe edema of the thighs and legs and feet and some edema of the torso. LABORATORY DATA: Fluid balance was +550 mL despite 2 mg of Bumex b.i.d. in the previous 24 hours. IMPRESSION: 1. This patient has severe predominantly right-sided heart failure. 2. Atrial fibrillation, rate is better controlled with beta yanni and addition of digoxin. RECOMMENDATIONS: Increase Bumex to 3 mg b.i.d. plus add metolazone 5 mg daily. A 1 mg of Bumex is being given to him now appreciated by one dose of metolazone, hopefully he diurese well. MANAV MANZO MD CM:PNTRANS [id number] MANAV MANZO MD 09/01/18 1211 interface
--- NOTE | ~2018-08-29 | PR ---
[place], [place] PROGRESS NOTE [id number] UNIT #: [id number] ROOM: 529 DOCTOR: LORY MCDONOUGH MD BIRTHDATE: [birth year] DOS: 08/31/2018 SUBJECTIVE: The patient is resting comfortably, eating his breakfast. He feels good and is not having any complaints. OBJECTIVE: VITAL SIGNS: Graphic trend shows a pressure 107/68, pulse of 98, respirations 18, and temperature 98.0. LUNGS: Diminished breath sounds, clear. HEART: Irregular, heart rate in the low 80s. ABDOMEN: Obese, soft, minimal amount of ascites noticed. EXTREMITIES: Continues to be pretty swollen. LABORATORY DATA: Glucose is 119, BUN 15, creatinine 1.19. Sodium 145, potassium 3.1, chloride 106, bicarbonate 30, calcium 8.4. WBC count is 5.1. ASSESSMENT AND PLAN: 1. The patient who presents with congestive heart failure, systolic, on IV diuretics, which will be continued. 2. Ascites with anasarca on IV antibiotics. 3. Right-sided pleural effusion status post thoracentesis removal of about 1200 mL of fluid. 4. Hypokalemia. Supplementation was ordered. I also added Aldactone, which should help improve the CHF and the volume overload. 5. Chronic atrial fibrillation, on long-term use of anticoagulants, which will be continued. LORY MCDONOUGH MD CM:PNTRANS [id number] LORY MCDONOUGH MD 08/31/18 0845 interface
--- NOTE | ~2018-08-29 | PR ---
[place], [place] PROGRESS NOTE [id number] UNIT #: [id number] ROOM: 529 DOCTOR: LORY MCDONOUGH MD BIRTHDATE: [birth year] DOS: 09/01/2018 SUBJECTIVE: The patient is sitting up in chair, is in no distress today. Does not have any new complaints. OBJECTIVE: VITAL SIGNS: Blood pressure is 123/70, pulse of 72, respirations 18, temperature 98.7. LUNGS: Diminished breath sounds, clear. HEART: Irregular. ABDOMEN: Obese. EXTREMITIES: Decreasing edema. ASSESSMENT AND PLAN: 1. Right-sided pleural effusion, status post thoracentesis. 2. Chronic systolic congestive heart failure with ascites, anasarca on high dose of diuretics with improvement. 3. Chronic atrial fibrillation, on anticoagulant. Discussed with Dr. Patricia and Dr. Almonte. The plan possibly is discharge him to home on Hurricane morning. LORY MCDONOUGH MD CM:PNTRANS [id number] LORY MCDONOUGH MD 09/01/18 1154 interface
--- NOTE | ~2018-08-29 | PROC NOTE ---
[place], [place] PROCEDURE NOTE [id number] UNIT #: [id number] ROOM: 529 DOCTOR: ISAURA QUINTERO MD,JOHN BIRTHDATE: [birth year] DOS: 08/30/2018 BRONCHOSCOPY NOTE PROCEDURE: Right-sided thoracentesis, ultrasound-guided. PREOPERATIVE DIAGNOSIS: Moderate right pleural fluid. POSTOPERATIVE DIAGNOSES: Removal of large pleural fluid of 1200 mL right pleural space without any difficulty or complications. PROCEDURE DESCRIPTION: Informed consent obtained for the patient. The patient was placed in a sitting position. Ultrasound of the chest was also performed. The site of thoracentesis, the posterior lower chest was marked. The skin was cleaned with chlorhexidine solution. 1% lidocaine was administered in the skin intercostal space. During administration of local anesthetic. The right pleural space was entered. A small amount of fluid was obtained. After that, a small incision given in the skin. The Turk[place] thoracentesis catheter advanced through the incision into the right pleural space. A total of 1200 mL of pleural fluid was removed successfully without difficulty at the bedside. The pleural fluid sent for all the appropriate necessary testing. Chest x-ray postprocedure shows complete resolution of the pleural fluid and resolution of the area of atelectasis in the right lower lobe secondary to that. JOHN DELAROSA MD CM:PROCNOTE:PROCEDURE NOTE [id number] JOHN QUINTERO MD
--- NOTE | ~2018-08-29 | PR ---
[place], [place] PROGRESS NOTE [id number] UNIT #: [id number] ROOM: 529 DOCTOR: MANAV MANZO MD BIRTHDATE: [birth year] DOS: 09/02/2018 SUBJECTIVE: He feels much better. He can move his ankles a little bit now and legs are smaller. He has no breathing difficulty. No PND or orthopnea. He has been walking around in the room. He had a good appetite and had a good breakfast this morning. PHYSICAL EXAMINATION: VITAL SIGNS: Temperature is 98 degrees, respiratory rate is about 14, pulse is 80 irregular, blood pressure 126/82. NECK: JVP is normal. AJR is negative. LUNGS: Sound pretty good. EXTREMITIES: There is still moderate degree of edema in the lower extremity, but substantially less. Fluid balance was -1.2 liters. He has lost about 9 kilos in weight since admission. His weight is now 98 kilos, but was 81 kilos in July. IMPRESSION: 1. The patient has chronic atrial fibrillation with a controlled rate. 2. Diastolic heart failure with predominantly right-sided decompensation, has improved significantly. PLAN: As discussed with Dr. Radha Jimenez, he should be discharged on torsemide 50 mg daily, which probably will work better for him. He is to follow up with Dr. Ferreira in the next week or two. MANAV MANZO MD CM:PNTRANS [id number] MANAV MANZO MD 09/02/18 1142 interface
--- NOTE | ~2018-08-29 | CON ---
[place], [place] REPORT OF CONSULTATION NAME: GUERRERO ARCINIEGA [facility] #: [id number] UNIT #: [id number] ROOM: 529 DOCTOR: ISAURA QUINTERO MDJOHN BIRTHDATE: [birth year] DOS: 08/30/2018 PULMONARY CONSULTATION, EVALUATION, AND MANAGEMENT CONSULTATION REQUESTED BY: Dr. Radha Jimenez. REASON FOR CONSULTATION: Assess for possible thoracentesis. HISTORY OF PRESENT ILLNESS: An 83-year-old white male patient who has reported progressing edema of the lower extremities, increased weight gain, and shortness of breath that occurring with exertion. The patient has not been responding to the treatment as an outpatient with use of Lasix and Unna boots placement. CT scan of the abdomen ordered by the urologist for assessment of the patient's urinary problems. The CT scan of the abdomen and pelvis was reported with finding of moderate right-sided pleural fluid as well as ascites. He denies any symptoms of coughing. Denies symptoms of wheezing, chest pain, or any hemoptysis. REVIEW OF SYSTEMS: CONSTITUTIONAL SYMPTOMS: Fatigue and tiredness reported. No fever and chills. EYES: Denies any burning, redness, or tenderness. EARS, NOSE, AND THROAT: Denies sore throat, hoarseness, otalgia, postnasal drainage or epistaxis. CARDIOVASCULAR: Edema of lower extremity noted. There were no symptoms of palpitations or chest pain or angina. GASTROINTESTINAL: Dysphagia, nausea, vomiting, diarrhea, abdominal pain, hematemesis, melena, or hematochezia. SKIN: Denies abnormal lesions, no rashes, or dryness of the skin. Remaining review of symptoms, they were noted all negative. PAST MEDICAL HISTORY: 1. The patient was known with history of benign essential hypertension. 2. Coronary artery disease. 3. Congestive heart failure with diastolic dysfunction. 4. Sick sinus syndrome, pacemaker in place. 5. Osteoarthritis. 6. Mixed hyperlipidemia. 7. Adult failure to thrive. SOCIAL HISTORY: The patient is . He lives at home. He has noted tobacco use, which was discontinued several years ago. He has worked in the [employer] for 45 years. PAST SURGICAL HISTORY: She has a permanent pacemaker insertion. FAMILY HISTORY: His father at 55 due to acute myocardial infarction. Mother at the age of 4343 years old, complication of acute leukemia. HOME MEDICATIONS: Reported use of recent ciprofloxacin ordered by the [place], [place] REPORT OF CONSULTATION NAME: GUERRERO ARCINIEGA UNIT #: [id number] ROOM: 529 DOCTOR: JOHN HUA MD BIRTHDATE: [birth year] urologist, Coreg, Plavix, diltiazem, Lexapro, finasteride, Lasix, lisinopril, potassium chloride, Xarelto, simvastatin, sotalol, and Flomax. DRUG ALLERGY HISTORY: Noted no known drug allergies. PHYSICAL EXAMINATION: GENERAL: This is an 83-year-old white male, currently sitting comfortably on the side of the bed without acute distress this morning of assessment. Height of 6 feet, weight of 236 pounds, BMI 32. VITAL SIGNS: Normal temperature since admission yesterday. Respiratory rate recorded between 18-20, heart rate of 63-91, blood pressure 120/64-130/88. Pulse oxygen saturation at rest on room air was recorded as 93% saturation. HEENT: Examination shows head was atraumatic. Eyes nonicterus. Mild elevation of JVD as well. CARDIOVASCULAR: S1, S2 is audible. LUNGS: Without any wheeze or crackles, decreased breaths in the right lower lung. ABDOMEN: Soft, nontender, mild distention. Bowel sounds present. No tenderness. EXTREMITIES: With edema. Chronic skin changes. MUSCULOSKELETAL: Without any acute deformities. CENTRAL NERVOUS SYSTEM: The patient's cranial nerves 2-12 intact. LABORATORY DATA: CBC of 08/29/2018, WBC count normal, hemoglobin 12.1, platelet count normal. The CMP on 08/29/2018, BUN 18 and creatinine 1.33. Other electrolytes were normal. The PT, PTT that was done yesterday, INR 1.3, PTT 33. BMP this morning, BUN normal, creatinine was normal, glucose 106. Potassium 3.3. Chest x-ray that was done yesterday were reviewed, shows hyperinflation of the lung, changes of COPD. The patient with a small infiltration, which is a compression atelectasis with associated pleural effusions. CT scan of the chest, abdomen and pelvis done on 08/26/2018. The patient was noted with moderate size right pleural fluid with compression atelectasis. Also noted small amount of abdominal ascites with finding of anasarca and edema, 2 cm nonobstructing right lower lobe kidney calculus was also noted. There was no hydronephrosis. IMPRESSION: 1. The patient has been known with history of congestive heart failure, diastolic dysfunction, cardiac dysrhythmia, presented to the hospital with small ascites as well as moderate pleural fluid, most likely etiology of pleural fluid would be considered related to the congestive heart failure, diastolic dysfunction. 2. The patient with a past history of tobacco use with a diagnosis of chronic obstructive pulmonary disease, but there were no findings of acute exacerbation. 3. The patient with chronic anticoagulation. The patient was also known as well. 4. History of cardiac dysrhythmia with sick sinus syndrome, pacemaker in place. 5. Elderly age patient with failure to thrive. 6. Benign essential hypertension. [place], [place] REPORT OF CONSULTATION NAME: GUERRERO ARCINIEGA UNIT #: [id number] ROOM: 529 DOCTOR: JOHN HUA MD BIRTHDATE: [birth year] PLAN OF MANAGEMENT: Thoracentesis will be performed as the ultrasound was performed at bedside, moderate sized pleural fluid was noted. After the thoracentesis, the fluid will be analyzed for different reasons to determine the etiology of pleural fluid. Based on that, further intervention could be done accordingly. Bronchodilators p.r.n. could be administered. Continue diuretic therapy, monitor kidney functions. Usual care. Supportive therapy, plan of management, and active diuresis. Plan to improve the anasarca, congestive heart failure in general, small ascites, most likely related to congestive heart failure, very likely cause. Asymptomatic kidney stones was also noted without evidence of hydronephrosis. Other supportive plan of management, care plan of treatment. JOHN DELAROSA MD CM:CONSTR:REPORT OF CONSULTATION 1255 08/31/18 0245 interface
--- NOTE | ~2018-08-29 | CON ---
[place], [place] REPORT OF CONSULTATION NAME: GUERRERO ARCINIEGA [facility] #: [id number] UNIT #: [id number] ROOM: 529 DOCTOR: SOWMYA LOGAN DPM BIRTHDATE: [birth year] DOS: 08/30/2018 SUBJECTIVE: This 83-year-old male is seen as consult for followup of bilateral lower extremity edema, history of venous leg ulcers. He was admitted with volume overload. He had a thoracentesis this morning and take off 1200 mL of fluid. He states he is feeling fine. Denies any pain in the legs. PAST MEDICAL HISTORY: Positive for benign hypertension, coronary artery disease, chronic venous insufficiency, history of pacemaker, history of systolic dysfunction with CHF, osteoarthritis of the knee, status post replacement. ALLERGIES: He has no known drug allergies. MEDICATIONS: Include Flomax, K-Dur, Zestril, Proscar, Lexapro, Bumex, Lopressor and Cipro. PHYSICAL EXAMINATION: Upon lower extremity physical examination, his legs are wrapped. The Unna boots were removed from both lower extremities. There is some mild edema noted. Pedal pulses are palpable. Skin temperature is warm. There is no erythema or signs of infection. He has no open wounds noted on either leg or foot and edema appears to be decreased. Negative Homans sign is noted bilaterally. ASSESSMENT: Chronic venous insufficiency with edema bilaterally, resolved venous leg ulcers bilaterally. PLAN: Consult is performed. Unna boots and bandages were removed. Recommend Tubigrip to both lower extremities to provide compression. Encourage him to elevate his legs. He has no wounds at this time. Compression stockings upon discharge, which he has at home. We will follow him up once he is discharged. Follow up as an outpatient. If any further need for us to see him in the hospital, we will be happy to see him again. Thank you for the opportunity to take part in care of this patient. SOWMYA LOGAN DPM CM:CONSTR:REPORT OF CONSULTATION 1203 08/30/18 1454 interface
--- NOTE | ~2018-08-29 | PR ---
[place], [place] PROGRESS NOTE [id number] UNIT #: [id number] ROOM: 529 DOCTOR: ISAURA QUINTERO MD,JOHN BIRTHDATE: [birth year] DOS: 09/01/2018 PULMONARY PROGRESS NOTE SUBJECTIVE: The patient was noted comfortable at this time this morning. CT to the chest still noted finding of anasarca. The patient and congestive heart failure. Thoracentesis was done a couple of days with the removal of the pleural fluid 500 mL, resulting in improvement in the symptoms of shortness of breath. Denies symptoms of chest pain. Mild cough without sputum expectoration reported. PHYSICAL EXAMINATION: VITAL SIGNS: Normal temperature, respiratory rate of 18, heart rate of 90, blood pressure 123/70. Intake 1100 mL and output 550 mL. Pulse oxygen saturation, 96% saturation on room air. HEENT: Head was atraumatic. Eyes nonicterus. NECK: Supple. CARDIOVASCULAR: S1, S2 is audible. LUNGS: The patient was noted without any wheezing or crackles. ABDOMEN: Soft, nontender. EXTREMITIES: Showed edema. IMPRESSION: 1. Congestive heart failure with anasarca. 2. Pleural fluid related to congestive heart failure, right-sided improving with improving respiratory status continued. PLAN OF TREATMENT: Continue diuretic therapy with intravenous Bumex, bronchodilator, monitor electrolytes and correct electrolytes accordingly. JOHN DELAROSA MD CM:PNTRANS [phone] JOHN QUINTERO MD 09/01/18 1330 interface
--- NOTE | ~2018-08-29 | DS ---
[place], [place] DISCHARGE SUMMARY NAME: GUERRERO ARCINIEGA [facility] #: [id number] UNIT #: [id number] ROOM: 529 DOCTOR: LORY MCDONOUGH MD BIRTHDATE: [birth year] DOS: 09/02/2018 The patient is very well-known to us. He was admitted to hospital on 08/29/2018, discharged on 09/02/2018. DIAGNOSES: 1. Chronic systolic congestive heart failure with anasarca. Ejection fraction 40-45%. Echocardiogram done this admission is not ready yet. 2. Right-sided pleural effusion status post thoracentesis about 1200 mL, ascites from the chronic congestive heart failure. 3. Chronic atrial fibrillation. 4. History of pacemaker placement. 5. Benign hypertension. 6. Coronary artery disease. 7. Primary osteoarthritis of knee joint bilateral knee replacement. 8. Mixed hyperlipidemia. 9. Failure to thrive. 10. Benign prostatic hypertrophy. DISCHARGE MEDICATIONS: Metoprolol 100 mg twice a day, Aldactone 25 daily, Bumex 2 mg daily, simvastatin 10 daily, Xarelto 10 daily, Plavix 75 daily, potassium 20 daily, lisinopril 10 daily, Lexapro 10 daily, tamsulosin 0.4 mg daily, finasteride 5 daily. I discontinued his Cipro, sotalol, Lasix, and 0.125 mg of digoxin. HOSPITAL COURSE: This patient is 83 years old, well known to us, who had a CT scan which showed pleural effusions and ascites. The patient was advised admission. After admission, the patient was placed on high dose of IV diuretics with chronic systolic CHF. Consultation for Dr. Patricia was obtained, who ordered an echocardiogram and readjusted his home medications. With the high dose of diuretics, he has been diuresing nicely and with improvement in the leg edema, anasarca, as well as ascites. For the pleural effusion, Dr. Almonte was consulted. Thoracentesis was performed about 1200 mL of fluid was removed. The patient is definitely improved with the current treatment plan and the plan is to discharge him to home today. He will need physical therapy at home; visiting nurses have been consulted for that. He does not have any other new complaints during the stay here and will need to do routine blood work as an outpatient. [place], [place] DISCHARGE SUMMARY NAME: GUERRERO ARCINIEGA UNIT #: [id number] ROOM: 529 DOCTOR: LORY MCDONOUGH MD BIRTHDATE: [birth year] LORY MCDONOUGH MD CM:MARIAN [phone] 0 LORY MCDONOUGH MD 09/02/18 0920 interface
--- NOTE | ~2018-08-29 | EKG ---
[place], [place] ELECTROCARDIOGRAM REPORT NAME: GUERRERO ARCINIEGA UNIT #: [id number] ROOM: 529 DOCTOR: FARRUKH DRAFT REPORT BIRTHDATE: [birth year] [facility] Test Date: 2018-08-29 Test Time: 10:52:05 Pat Name: GUERRERO ARCINIEGA Department: Room: 529 Gender: M Management Professionals: Anupama Munoz : 1935 Requested By: RUBEN SANCHEZ Order Number: [id number] Reading MD: Tal Woodson MD Measurements Intervals [place] Rate: 99 P: WI: QRS: 37 QRSD: 98 T: 259 QT: 343 QTc: 484 Interpretive Statements Atrial fibrillation with occasional paced beats NSST-T changes Compared to ECG 06/20/2018 13:08:26 Atrial fibrillation is now present Electronically Signed On 08-30-2018 12:40:52 PST by Tal Woodson MD CM:EKGRPT:ELECTROCARDIOGRAM REPORT 1052 1240 RUBEN CHADWICK DRAFT REPORT RUBEN SANCHEZ MD
--- NOTE | ~2018-08-29 | PR ---
[place], [place] PROGRESS NOTE NAME: GUERRERO ARCINIEGA UNIT #: [id number] ROOM: 529 DOCTOR: MANAV MANZO MD BIRTHDATE: [birth year] DOS: 08/31/[address] Ferreira. SUBJECTIVE: The patient has severe heart failure and was on Bumex 2 mg b.i.d. He has had -3.6 liters fluid balance for the last 48 hours. His legs are still swollen. He is not short of breath. No cough, PND or orthopnea. No palpitations. His mood is okay. His appetite is fine. He has moved around in the room only. PHYSICAL EXAMINATION: GENERAL: He looks well, sitting in this chair. VITAL SIGNS: His temperature is normal. Pulse is irregular, 180 beats per minute, blood pressure 138/76. NECK: JVP is about 8 cm with positive AJR. LUNGS: Pretty clear to auscultation. EXTREMITIES: He still has severe edema of the legs below the knees and moderate edema of the thighs. He has stockings on, which has rolled on itself causing constriction and probably making edema worse. I removed these. LABORATORY DATA: Hemoglobin 11.4 grams. BUN is 15, creatinine 1.19, potassium 3.1. IMPRESSION: 1. This patient has combined systolic heart failure, but predominantly right heart failure that is improving with very good urine output. 2. Moderate hypokalemia from diuresis. 3. Atrial fibrillation with rapid rate. RECOMMENDATIONS: 1. Same dose of Bumex for time being. 2. Increase oral potassium supplement. 3. Add digoxin 0.25 mg daily. He is already on metoprolol 100 b.i.d. and this is not taming his heart rate adequately. 4. Removed stockings altogether and his edema is likely to improve without it. I discussed this with the patient and his son. I saw this patient on behalf of Dr. Ferreira. [place], [place] PROGRESS NOTE NAME: GUERRERO ARCINIEGA UNIT #: [id number] ROOM: 529 DOCTOR: MANAV MANZO MD BIRTHDATE: [birth year] MANAV MANZO MD CM:PNANJU [id number] MANAV MANZO MD 08/31/18 1203 interface
--- NOTE | ~2018-08-29 | PR ---
[place], [place] PROGRESS NOTE NAME: GUERRERO ARCINIEGA [facility] #: [id number] UNIT #: [id number] ROOM: 529 DOCTOR: ISAURA QUINTERO MD,JOHN BIRTHDATE: [birth year] DOS: 08/31/2018 PULMONARY PROGRESS NOTE SUBJECTIVE: The patient has been noted comfortable at this time without any acute distress. He has not been reporting any symptoms of chest pain. Shortness of breath has improved markedly. The patient had thoracentesis completed yesterday. Edema of the lower extremity is resolving. There are no symptoms of chest pain or hemoptysis. Denies symptoms of headache or diplopia. Denies symptoms of nausea, vomiting, diarrhea or other acute symptoms. OBJECTIVE: Remaining review of systems was noted as negative. OBJECTIVE: VITAL SIGNS: Normal temperature, respiratory rate 20, heart rate of 101, blood pressure 138/76, pulse oxygen saturation was recorded as 97% at rest on room air. HEENT: Neck was supple. Head was atraumatic. Eyes nonicterus. CARDIOVASCULAR: S1 and S2 audible. LUNGS: The patient has improvement in air entry of the lungs bilaterally. ABDOMEN: Soft, nontender. Bowel sounds present. EXTREMITIES: Without new changes. Mild edema of lower extremity. Dryness of the skin. VISIBLE SKIN: No lesions or rashes. CENTRAL NERVOUS SYSTEM: Cranial nerves 2-12 intact. No focal deficit. MUSCULOSKELETAL: Without any acute deformities. DIAGNOSTIC DATA: Assessment of pleural fluid from yesterday, WBCs of 222 with 3000 RBCs, 29% lymphocytes, 62% macrophages. Glucose 113, total protein of 2.0, LDL 63, cholesterol less than 50, albumin 1.1, all consistent with transudative pleural effusion. PH of the pleural fluid was also ordered for the patient, which is not available. Chest x-ray status-post thoracentesis shows complete re-expansion of the right lung without any pneumothorax post-procedure. BMP that was done this morning has sodium of 145, potassium 3.1, normal BUN and creatinine. CBC this morning, WBC count normal, platelet count normal, and hemoglobin 11.4. IMPRESSION: 1. The patient has been currently noted with transudative pleural fluid related to congestive heart failure. 2. Small abdominal ascites as well. 3. Compression atelectasis of the right lower lobe secondary to pleural fluid. There was no evidence of acute pneumonia. 3. Acute congestive heart failure. PLAN OF MANAGEMENT: Continue diuretics. Monitor kidney functions. Supplementation of electrolytes with the current hypokalemia. Other supportive therapy, plan of management, care plan and treatment, and usual care. [place], [place] PROGRESS NOTE NAME: GUERRERO ARCINIEGA UNIT #: [id number] ROOM: 529 DOCTOR: JOHN HUA MD BIRTHDATE: [birth year] JOHN DELAROSA MD CM:PNTRANS [id number] JOHN QUINTERO MD 08/31/18 1344 interface
--- NOTE | ~2018-08-29 | PR ---
[place], [place] PROGRESS NOTE [facility] [id number] UNIT #: [id number] ROOM: 529 DOCTOR: LORY MCDONOUGH MD BIRTHDATE: [birth year] DOS: 09/02/2018 SUBJECTIVE: The patient is up and down. He is going to the bathroom and urinating because of the IV diuretics. He states he is not able to rest much, but he feels good. Does not have any shortness of breath or chest pain. Leg swelling has improved. PHYSICAL EXAMINATION: VITAL SIGNS: Blood pressure is ____, pulse of 94, respirations 20, temperature 98.1. LUNGS: Diminished breath sounds, clear. HEART: Irregular, heart rate controlled. ABDOMEN: Obese. EXTREMITIES: Decreased edema. ASSESSMENT AND PLAN: Congestive heart failure with anasarca with left ventricular dysfunction, ____ with chronic systolic congestive heart failure, improved with the diuretics. 2. Right-sided pleural effusion, status post thoracentesis. 3. Chronic atrial fibrillation, on anticoagulants. The patient is overall stable and improved. The plan is to discharge him to home today. Follow up as an outpatient. LORY MCDONOUGH MD CM:PNTRANS [id number] LORY MCDONOUGH MD 09/02/18 0946 interface
[2018-08-29 10:19] VITALS: BP 146/96
[~2018-08-29 10:19] MED LIST changes: -ALDACTONE25 MG PO; -BUMETANIDE2 MG PO; -CIPRO500 MG PO; -DIGITEK125 MCG PO; -DILTIAZEM 24HR300 MG PO; -FINASTERIDE5 M1 PO; -METOPROLOL TAR100 M1 PO; -TAMSULOSIN HCL0.4 MG PO
[2018-08-29 10:49] LABS: BASO # 0.1 10*3/uL (0.0-0.1); BASO % 1.1 % (0.0-1.0); EOS # 0.2 10*3/uL (0.0-0.4); EOS % 4.2 % (1.0-4.0); HEMATOCRIT 37.4 % (42.0-52.0); HEMOGLOBIN 12.1 g/dl (14.0-18.0); LYMPH # 0.7 10*3/uL (1.3-4.4); LYMPH % 12.7 % (27.0-41.0); MEAN CELL VOLUME 82.4 fl (80.0-94.0); MEAN CORPUSCULAR HGB 26.7 pg (27.0-31.0); MEAN CORPUSCULAR HGB CONC 32.4 g/dl (33.0-37.0); MEAN PLATELET VOLUME 10.3 fl (9.6-12.3); MONO # 0.5 10*3/uL (0.1-1.0); MONO % 9.8 % (3.0-9.0); NEUT % 71.8 % (47.0-73.0); PLATELET COUNT AUTOMATED 218 10*3/uL (130-400); RED BLOOD COUNT 4.54 10*6/uL (4.50-5.90); RED CELL DISTRI WIDTH 19.6 % (0-14.5); WHITE BLOOD COUNT 5.5 10*3/uL (4.8-10.8)
[2018-08-29 11:05] LABS: ALBUMIN 2.9 gm/dl (3.1-4.5); ALKALINE PHOSPHATASE 91 U/L (45-117); BUN 18 mg/dl (7-24); CHLORIDE 105 mmol/L (98-107); CREATININE 1.33 mg/dL (0.70-1.30); POTASSIUM 3.7 mmol/L (3.5-5.1); SGOT/AST 17 IU/L (3-35); SGPT/ALT 15 U/L (12-78); SODIUM 142 mmol/L (136-145); TOTAL PROTEIN 6.9 gm/dL (6.4-8.2)
[2018-08-29 11:06] LABS: TROPONIN I 0.019 ng/ml (<0.045)
[2018-08-29 11:12] LABS: INTERNATIONAL NORM RATIO 1.3 (2.0-3.5)
[2018-08-29 13:48] VITALS: BP 134/84
[2018-08-29] MEDS ORDERED: LEXAPRO10 MG PO (14:05)
[2018-08-29] MEDS ORDERED: CIPRO500 MG PO (14:07)
[2018-08-29] MEDS ORDERED: TAMSULOSIN HCL0.4 MG PO (14:08)
[2018-08-29] MEDS ORDERED: FINASTERIDE5 M1 PO (14:09)
[2018-08-29] MEDS ORDERED: PLAVIX75 M1 PO (14:18)
[2018-08-29] MEDS ORDERED: DILTIAZEM 24HR300 MG PO (14:19)
[2018-08-29 16:00] VITALS: BP 110/55; BP 122/74
[2018-08-29 20:00] VITALS: BP 121/64
[2018-08-30] VITALS: BP 122/68
[2018-08-30 07:07] LABS: BUN 17 mg/dl (7-24); CHLORIDE 104 mmol/L (98-107); POTASSIUM 3.3 mmol/L (3.5-5.1); SODIUM 141 mmol/L (136-145)
[2018-08-30 07:09] LABS: CREATININE 1.21 mg/dL (0.70-1.30)
[2018-08-30 08:00] VITALS: BP 130/88
[2018-08-30 10:47] LABS: BODY FLUID WBC 222 /uL
[2018-08-30 11:46] LABS: BF LYMPHOCYTES 29 %; BF MACROPHAGES 62 %; BF MESOTHELIALS 2 %; BF NEUTROPHILS 7 %
[2018-08-30 12:00] VITALS: BP 128/92
[2018-08-30 16:00] VITALS: BP 109/68
[2018-08-30 20:00] VITALS: BP 117/69
[2018-08-31] VITALS: BP 107/68
[2018-08-31 06:39] LABS: BASO # 0.1 10*3/uL (0.0-0.1); EOS # 0.3 10*3/uL (0.0-0.4); EOS % 4.9 % (1.0-4.0); HEMATOCRIT 35.9 % (42.0-52.0); HEMOGLOBIN 11.4 g/dl (14.0-18.0); LYMPH # 0.9 10*3/uL (1.3-4.4); LYMPH % 18.1 % (27.0-41.0); MEAN CELL VOLUME 81.8 fl (80.0-94.0); MEAN CORPUSCULAR HGB CONC 31.8 g/dl (33.0-37.0); MEAN PLATELET VOLUME 10.4 fl (9.6-12.3); MONO # 0.6 10*3/uL (0.1-1.0); MONO % 12.6 % (3.0-9.0); NEUT # 3.2 10*3/uL (2.3-7.9); NEUT % 63.2 % (47.0-73.0); PLATELET COUNT AUTOMATED 185 10*3/uL (130-400); RED BLOOD COUNT 4.39 10*6/uL (4.50-5.90); RED CELL DISTRI WIDTH 19.6 % (0-14.5); WHITE BLOOD COUNT 5.1 10*3/uL (4.8-10.8)
[2018-08-31 07:06] LABS: BUN 15 mg/dl (7-24); CHLORIDE 106 mmol/L (98-107); CREATININE 1.19 mg/dL (0.70-1.30); POTASSIUM 3.1 mmol/L (3.5-5.1); SODIUM 145 mmol/L (136-145)
[2018-08-31 08:00] VITALS: BP 138/76
[2018-08-31 12:00] VITALS: BP 127/70
[2018-08-31 16:00] VITALS: BP 129/75
[2018-08-31 20:00] VITALS: BP 122/61
[2018-09-01] VITALS: BP 123/70
[2018-09-01 06:41] LABS: BASO # 0.1 10*3/uL (0.0-0.1); BASO % 0.9 % (0.0-1.0); EOS # 0.3 10*3/uL (0.0-0.4); EOS % 4.6 % (1.0-4.0); HEMATOCRIT 35.6 % (42.0-52.0); HEMOGLOBIN 11.2 g/dl (14.0-18.0); LYMPH % 18.2 % (27.0-41.0); MEAN CORPUSCULAR HGB 26.1 pg (27.0-31.0); MEAN CORPUSCULAR HGB CONC 31.5 g/dl (33.0-37.0); MEAN PLATELET VOLUME 11.2 fl (9.6-12.3); MONO # 0.8 10*3/uL (0.1-1.0); MONO % 13.4 % (3.0-9.0); NEUT # 3.5 10*3/uL (2.3-7.9); NEUT % 62.5 % (47.0-73.0); PLATELET COUNT AUTOMATED 209 10*3/uL (130-400); RED BLOOD COUNT 4.29 10*6/uL (4.50-5.90); RED CELL DISTRI WIDTH 19.8 % (0-14.5); WHITE BLOOD COUNT 5.7 10*3/uL (4.8-10.8)
[2018-09-01 06:51] LABS: BUN 16 mg/dl (7-24); CHLORIDE 104 mmol/L (98-107); CREATININE 1.22 mg/dL (0.70-1.30); POTASSIUM 3.5 mmol/L (3.5-5.1); SODIUM 144 mmol/L (136-145)
[2018-09-01 12:00] VITALS: BP 106/54
[2018-09-01 16:00] VITALS: BP 96/71
[2018-09-01 20:00] VITALS: BP 129/70
[2018-09-02] VITALS: BP 148/90
[2018-09-02] MEDS ORDERED: METOPROLOL TAR100 M1 PO (08:43)
[2018-09-02] MEDS ORDERED: ALDACTONE25 MG PO (08:43)
[2018-09-02] MEDS ORDERED: BUMETANIDE2 MG PO (08:43)
[2018-09-02] MEDS ORDERED: DIGITEK125 MCG PO (08:48)
[2018-09-02 09:05] VITALS: BP 126/82
== END 2018-09-02 12:28 | disposition home or self-care (01) | DRG 292 ==
LOC: ED 10:19 → EDHOLD 10:50 → 5E 10:50
PROVIDERS: Emergency Medicine; Internal Medicine; Internal Medicine Critical Care Medicine
PROC: 0W9930Z Drainage of Right Pleural Cavity with Drainage Device, Percutaneous Approach (ICD-10-PCS; principal; 2018-08-30)
DX: I11.0 Hypertensive heart disease with heart failure (principal); J90 Pleural effusion, not elsewhere classified; R18.8 Other ascites; L97.828 Non-pressure chronic ulcer of other part of left lower leg with other specified severity; L97.818 Non-pressure chronic ulcer of other part of right lower leg with other specified severity; J98.11 Atelectasis; I50.43 Acute on chronic combined systolic (congestive) and diastolic (congestive) heart failure; I48.2 Chronic atrial fibrillation; I25.10 Atherosclerotic heart disease of native coronary artery without angina pectoris; I87.2 Venous insufficiency (chronic) (peripheral); I49.5 Sick sinus syndrome; Z96.653 Presence of artificial knee joint, bilateral; E87.6 Hypokalemia; E78.2 Mixed hyperlipidemia; J44.9 Chronic obstructive pulmonary disease, unspecified; R62.7 Adult failure to thrive; N40.0 Benign prostatic hyperplasia without lower urinary tract symptoms; Z95.0 Presence of cardiac pacemaker; I25.2 Old myocardial infarction; Z86.73 Personal history of transient ischemic attack (TIA), and cerebral infarction without residual deficits; Z95.5 Presence of coronary angioplasty implant and graft; Z82.49 Family history of ischemic heart disease and other diseases of the circulatory system; Z79.01 Long term (current) use of anticoagulants; Z79.899 Other long term (current) drug therapy

== ENCOUNTER → 2019-08-28 | Outpatient (CLI) | payer OTHER ==
[~2019-08-28] MED LIST changes: +ALDACTONE25 MG PO; +BUMETANIDE2 MG PO; +CIPRO500 MG PO; +DIGITEK125 MCG PO; +DILTIAZEM 24HR300 MG PO; +FINASTERIDE5 M1 PO; +METOPROLOL TAR100 M1 PO; +TAMSULOSIN HCL0.4 MG PO
== END | disposition home or self-care (01) ==
LOC: RESCLI 00:40
DX: I11.0 Hypertensive heart disease with heart failure (principal); I50.9 Heart failure, unspecified; E78.5 Hyperlipidemia, unspecified; I48.20 Chronic atrial fibrillation, unspecified; N40.0 Benign prostatic hyperplasia without lower urinary tract symptoms; Z79.899 Other long term (current) drug therapy; Z96.653 Presence of artificial knee joint, bilateral

== ENCOUNTER → 2020-05-06 | Outpatient (CLI) | payer OTHER | END | disposition home or self-care (01) | LOC: RESCLI 00:37 | PROVIDERS: ATTEND Internal Medicine Nephrology | DX: Z71.89 Other specified counseling (principal); I10 Essential (primary) hypertension; E78.00 Pure hypercholesterolemia, unspecified; I48.91 Unspecified atrial fibrillation; Z79.899 Other long term (current) drug therapy; Z87.891 Personal history of nicotine dependence; Z95.828 Presence of other vascular implants and grafts; Z98.890 Other specified postprocedural states ==

== ENCOUNTER 2020-09-30 11:27 | Emergency (ER) | payer OTHER ==
[2020-09-30 11:55] LABS: BASO % 0.3 % (0.0-1.0); EOS # 0.2 10*3/uL (0.0-0.4); EOS % 1.7 % (1.0-4.0); HEMATOCRIT 43.2 % (42.0-52.0); LYMPH # 0.8 10*3/uL (1.3-4.4); LYMPH % 9.1 % (27.0-41.0); MEAN CELL VOLUME 85.9 fl (80.0-94.0); MEAN CORPUSCULAR HGB 27.4 pg (27.0-31.0); MEAN CORPUSCULAR HGB CONC 31.9 g/dl (33.0-37.0); MEAN PLATELET VOLUME 11.2 fl (9.6-12.3); MONO # 0.7 10*3/uL (0.1-1.0); MONO % 7.8 % (3.0-9.0); NEUT # 7.3 10*3/uL (2.3-7.9); NEUT % 80.7 % (47.0-73.0); PLATELET COUNT AUTOMATED 250 10*3/uL (130-400); RED BLOOD COUNT 5.03 10*6/uL (4.50-5.90); RED CELL DISTRI WIDTH 13.9 % (0-14.5)
[2020-09-30 12:06] LABS: ACT PARTIAL THROMBO TIME 31.2 SECONDS (20.0-32.1); INTERNATIONAL NORM RATIO 1.3 (2.0-3.5)
[2020-09-30 12:14] LABS: ALBUMIN 3.1 gm/dl (3.1-4.5); ALKALINE PHOSPHATASE 86 U/L (45-117); BUN 33 mg/dl (7-24); CHLORIDE 104 mmol/L (98-107); CREATININE 1.61 mg/dL (0.70-1.30); POTASSIUM 4.5 mmol/L (3.5-5.1); SGOT/AST 15 IU/L (3-35); SGPT/ALT 15 U/L (12-78); SODIUM 138 mmol/L (136-145); TOTAL PROTEIN 7.5 gm/dL (6.4-8.2)
[2020-09-30 12:15] LABS: TROPONIN I < 0.015 ng/ml (<0.045)
[2020-09-30 12:58] VITALS: BP 120/70
[2020-09-30] MEDS ORDERED: ZITHROMAX250 MG PO (14:29)
== END 2020-09-30 14:12 | disposition home or self-care (01) ==
LOC: ED 11:27
PROVIDERS: Emergency Medicine
DX: J40 Bronchitis, not specified as acute or chronic (principal); Z20.828 Contact with and (suspected) exposure to other viral communicable diseases; Z79.899 Other long term (current) drug therapy; Z87.891 Personal history of nicotine dependence